=== PATIENT | female | born 1985 | race Two or more races ===

== ENCOUNTER 2023-09-02 08:20 | Inpatient (IN) | payer OTHER ==
[2023-09-02] MEDS: CITRIC ACID/SODIUM CITRATE 30 ML UNIT-DOSE CUP PO ONE (09:05)
[2023-09-02 09:35] VITALS: BMI 33.5
[2023-09-02] MEDS: ELECTROLYTE-148 SOLN 1,000 ML IV SCH (10:00)
[2023-09-02] MEDS ORDERED: morphine SULFATE/PF 1 MG/2 ML (2cc Syringe - QUVA) ONE (10:15)
[2023-09-02] MEDS ORDERED: FENTANYL CITRATE/PF 50 MCG/ML VIAL ONE (10:16)
[2023-09-02] MEDS ORDERED: SUCCINYLCHOLINE CHLORIDE 200 MG/10 ML SYRINGE ONE (10:56)
[2023-09-02] MEDS ORDERED: PROPOFOL 20 ML ONE (10:56)
[2023-09-02] MEDS ORDERED: ePHEDrine SULFATE 50 MG/1 ML AMPULE ONE (11:00)
[2023-09-02] MEDS ORDERED: KETOROLAC TROMETHAMINE 30 MG/1 ML VIAL ONE (11:43)
[2023-09-02] MEDS ORDERED: OXYTOCIN 10 UNITS/ML VIAL ONE (11:43)
[2023-09-02] MEDS ORDERED: ONDANSETRON 4 MG/2 ML VIAL ONE (11:43)
[2023-09-02] MEDS ORDERED: ceFAZolin SODIUM 1 GM VIAL ONE (11:43)
[2023-09-02] MEDS ORDERED: ONDANSETRON 4 MG/2 ML VIAL IVPB PRN (12:19)
[2023-09-02] MEDS: ACETAMINOPHEN 1000 MG/100 ML BAG IVPB SCH (13:00)
[2023-09-02] MEDS: ACETAMINOPHEN 325 MG TABLET (FP) PO SCH (13:36)
[2023-09-02] MEDS ORDERED: OXYTOCIN 20 UNITS in 0.9% NS 20 UNIT/1,000 ML INFUS.BAG IV ONE (13:58)
[2023-09-02] MEDS: OXYTOCIN 20 UNITS in 0.9% NS 20 UNIT/1,000 ML INFUS.BAG IV SCH (14:15)
[2023-09-02] MEDS: METHYLERGONOVINE MALEATE 0.2 MG/1 ML AMP IM ONE ×2 (14:15→15:48)
[2023-09-02] MEDS: IBUPROFEN 800 MG/8 ML IJ IVPB PRN (14:31)
[2023-09-02] MEDS ORDERED: IBUPROFEN 800 MG/8 ML IJ IVPB ONE (14:32)
[2023-09-02] MEDS: CEFAZOLIN 2 GM in DEXTROSE 5%-WATER 100 ML IVPB SCH (17:15)
[2023-09-02] MEDS: SENNOSIDES/DOCUSATE COMBO (SENNA PLUS) TABLET (UD) PO SCH (21:35)
[2023-09-03 07:45] LABS: BASO % 0.6 % (0-2.0); EOS % 1.6 % (0-4.5); HEMATOCRIT 34.4 % (32.4-45.2); HEMOGLOBIN 11.4 GM/dL (10.7-15.3); LYMPH % 7.5 % (8-40); MCH 30.2 pg (25.7-33.7); MCHC 33.1 g/dl (32.0-36.0); MEAN CELL VOLUME 91.3 fl (80-96); MEAN PLT VOLUME 9.9 fl (7.5-11.1); MONO % 5.6 % (3.8-10.2); NEUT % 84.7 % (42.8-82.8); PLATELET COUNT 179 10^3/uL (134-434); RBC 3.77 M/mm3 (3.60-5.2); RDW 14.4 % (11.6-15.6); WHITE BLOOD COUNT 13.5 K/mm3 (4.0-10.0)
[2023-09-03] MEDS: IBUPROFEN 600 MG TABLET (FP) PO PRN (09:15)
[2023-09-03] MEDS: SIMETHICONE 80 MG TAB.CHEW (FP) PO PRN (09:16)
[2023-09-03] MEDS: ACETAMINOPHEN 325 MG TABLET (FP) PO SCH (11:52)
[2023-09-03] MEDS ORDERED: IBUPROFEN 600 MG TABLET (FP) PO PRN (12:19)
[2023-09-03] MEDS: BISACODYL 10 MG SUPP.RECT RC PRN (14:59)
[2023-09-03] MEDS: oxyCODONE HCL 5 MG TABLET PO PRN (21:24)
[2023-09-03 22:22] VITALS: RESP 18
[2023-09-04 11:21] VITALS: BP 121/72; PULSE 80; TEMP 98
== END 2023-09-04 13:45 | disposition home or self-care (01) | DRG 560 ==
LOC: JLDR 08:20 → J3W 15:10
PROVIDERS: ADMIT Specialist; ATTEND Specialist
DX: O34.211 Maternal care for low transverse scar from previous cesarean delivery (principal); Z3A.40 40 weeks gestation of pregnancy; Z37.0 Single live birth
CPT/HCPCS: 36415; 59025; 76819-TC; 85025; 88304-TC; 88307-TC; J0131